=== PATIENT | female | born 1930 | race Caucasian/White ===

== ENCOUNTER 2017-04-05 12:38 | Emergency (ER) | payer MEDICARE, BC ==
[2017-04-05 13:37] VITALS: BP 147/77
[2017-04-05] MEDS ORDERED: cefTRIAXone 1 GM in Sodium Chloride 0.9% 50 ML IV ONE ×2 (13:51→14:15)
--- NOTE | 2017-04-05 13:53 | EDM.PDOC ---
ED HPI GENERAL MEDICAL PROBLEM - General Chief Complaint: General Stated Complaint: LIGHTHEADED, FALL Time Seen by Provider: 04/05/17 13:51 Source of Information: Reports: Patient, Family History Limitations: Reports: No Limitations - History of Present Illness INITIAL COMMENTS - FREE TEXT/NARRATIVE: pt has a urine culture positive for ecol. She was placed on nitrofuradatoin and she felt lite headed last nite and this am. She has not tolerated the nitrofuradatoin in the past. Onset: Today, Other (pt was very lite headed) Duration: Hour(s): Location: Reports: Head, Other (pt felt very lite headed. She was on nitrofurdatoin She has not tolerated that in the past. ) Associated Symptoms: Reports: Other (liteheaded and dizzy feeling. ) - Related Data Allergies Allergy/AdvReac Type Severity Reaction Status Date / Time nitrofurantoin Allergy Nausea Verified 04/06/17 09:17 seasonal allergies Allergy Cough Uncoded 04/05/17 13:37 Home Meds: Home Meds Simvastatin 40 mg PO DAILY 05/20/14 [History] Ramipril [Altace] 2.5 mg PO DAILY 02/02/15 [History] Aspirin 0.5 tab PO DAILY 11/26/15 [History] Lactobacillus Acidophilus [Acidophilus Lactobacillus] 1 each PO DAILY 11/26/15 [ History] Past Medical History HEENT History: Reports: Allergic Rhinitis, Hard of Hearing, Impaired Vision Cardiovascular History: Reports: Angina, Arrhythmia, High Cholesterol Gastrointestinal History: Reports: GERD Genitourinary History: Reports: UTI, Recurrent 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: Musculoskeletal History: Reports: Osteoarthritis Other Musculoskeletal History: R shoulder pain - Infectious Disease History Infectious Disease History: Reports: Chicken Pox, Measles, Pertussis (Whooping Cough) - Past Surgical History HEENT Surgical History: Reports: Cataract Surgery Musculoskeletal Surgical History: Reports: Hip Replacement Social & Family History - Tobacco Use Smoking Status *Q: Never Smoker Second Hand Smoke Exposure: No - Alcohol Use Days Per Week of Alcohol Use: 1 Number of Drinks Per Day: 1 Total Drinks Per Week: 1 - Recreational Drug Use Recreational Drug Use: No ED ROS GENERAL - Review of Systems Review Of Systems: See Below Constitutional: Reports: No Symptoms HEENT: Reports: No Symptoms Respiratory: Reports: No Symptoms Cardiovascular: Reports: No Symptoms Endocrine: Reports: No Symptoms GI/Abdominal: Reports: No Symptoms : Reports: No Symptoms Musculoskeletal: Reports: Other ( Pt i feeling very liteheaded. ) Skin: Reports: No Symptoms Neurological: Reports: Dizziness, Other ( Lite headed. ) Psychiatric: Reports: No Symptoms ED EXAM, GENERAL - Physical Exam Exam: See Below Free Text/Narrative:: Pt id feeling off balance. When she has been on the nitrofurotain has done this to her in the past. Exam Limited By: No Limitations General Appearance: Alert, Anxious, Other ( Pupils are equal and reactive. ) Ears: Normal TMs Nose: Normal Inspection Throat/Mouth: Normal Inspection Head: Atraumatic Neck: Normal Inspection Respiratory/Chest: No Respiratory Distress Cardiovascular: Regular Rate, Rhythm GI/Abdominal: Soft, Non-Tender (Female) Exam: Deferred Rectal (Female) Exam: Deferred Back Exam: Normal Inspection Extremities: Normal Inspection Neurological: Alert, Oriented, Normal Cognition Psychiatric: Normal Affect Course - Vital Signs Last Recorded V/S: Last Vital Signs Temp 37 C 04/05/17 13:36 Pulse 88 04/05/17 13:36 Resp 14 04/05/17 13:36 BP 147/77 H 04/05/17 13:36 Pulse Ox 98 04/05/17 13:36 - Orders/Labs/Meds Labs: Laboratory Tests 04/05/17 04/05/17 04/05/17 Range/Units 13:58 13:58 14:48 WBC 12.9 H (4.5-11.0) K/uL RBC 3.90 (3.30-5.50) M/uL Hgb 11.9 L D (12.0-15.0) g/dL Hct 36.2 (36.0-48.0) % MCV 93 (80-98) fL MCH 31 (27-31) pg MCHC 33 (32-36) % Plt Count 280 (150-400) K/uL Neut % (Auto) 92 H (36-66) % Lymph % (Auto) 4 L (24-44) % [place] % (Auto) 3 (2-6) % Eos % (Auto) 1 L (2-4) % Baso % (Auto) 0 (0-1) % Sodium 129 L (140-148) mmol/L Potassium 3.6 (3.6-5.2) mmol/L Chloride 94 L (100-108) mmol/L Carbon Dioxide 26 (21-32) mmol/L Anion Gap 12.6 (5.0-14.0) mmol/L BUN 22 H (7-18) mg/dL Creatinine 0.9 (0.6-1.0) mg/dL Est Cr Clr Drug Dosing 32.23 mL/min Estimated GFR (MDRD) 59 L (>60) Glucose 126 H (74-106) mg/dL Calcium 8.5 D (8.5-10.1) mg/dL Total Bilirubin 0.6 (0.2-1.0) mg/dL AST 26 (15-37) U/L ALT 28 (12-78) U/L Alkaline Phosphatase 61 (46-116) U/L Total Protein 6.7 (6.4-8.2) g/dL Albumin 3.7 (3.4-5.0) g/dL Globulin 3.0 (2.3-3.5) g/dL Albumin/Globulin Ratio 1.2 (1.2-2.2) Urine Color Yellow Urine Appearance Slightly cloudy Urine pH 5.0 (4.5-8.0) Ur Specific [place] 1.005 L (1.008-1.030) Urine Protein Negative (NEGATIVE) mg/dL Urine Glucose (UA) Normal (NEGATIVE) mg/dL Urine Ketones Negative (NEGATIVE) mg/dL Urine Occult Blood Negative (NEGATIVE) Urine Nitrite Negative (NEGATIVE) Urine Bilirubin Negative (NEGATIVE) Urine Urobilinogen Normal (NORMAL) mg/dL Ur Leukocyte Esterase Large (NEGATIVE) Urine RBC 0-5 (0-5) Urine WBC 0-5 (0-5) Ur Epithelial Cells Few Amorphous Sediment Not seen Urine Bacteria Few Urine Mucus Not seen Meds: Medications Discontinued Medications Generic Name Dose Route Start Last Admin Trade Name Freq PRN Reason Stop Dose Admin Sodium Chloride 1,000 mls @ 600 mls/hr 04/05/17 14:00 04/05/17 14:41 Normal Saline IV 600 mls/hr ASDIRECTED KIMMY Administration Ceftriaxone Sodium 1 gm/ 50 mls @ 100 mls/hr 04/05/17 14:15 04/05/17 14:41 Sodium Chloride IV 04/05/17 14:44 100 mls/hr ONETIME ONE Administration - Re-Assessments/Exams Free Text/Narrative Re-Assessment/Exam: 04/05/17 14:40 pt arrived with dizziness and intolerance to the nitofurtain. She also thought she had not been drinking enough fluids. Her wbc was elevated . f 04/05/17 14:45 Pt was given a liter of fluid and 1 gram of rocephen. Departure - Departure Time of Disposition: 13:40 Disposition: Home, Self-Care 01 Condition: Fair Clinical Impression: UTI (urinary tract infection), Medication adverse effect - Discharge Information Instructions: Urinary Tract Infection, Adult, [id number] Referrals: Nelly Larsen MD [Primary Care Provider] - Forms: ED Department Discharge Care Plan Goals: Push fluids, rtc tomorrow for rocephen 1gm, After that start cipro 500mg bid-- she has that. See her own provider and recheck Ua in 10 days.
[2017-04-05] MEDS ORDERED: Sodium Chloride 0.9% 1,000 ML IV SCH (14:00)
== END 2017-04-05 16:30 | disposition home or self-care (01) ==
LOC: JP.ED 12:38
DX: R42 Dizziness and giddiness (principal); T37.8X5A Adverse effect of other specified systemic anti-infectives and antiparasitics, initial encounter; N39.0 Urinary tract infection, site not specified; E78.00 Pure hypercholesterolemia, unspecified; Z96.649 Presence of unspecified artificial hip joint; Z98.49 Cataract extraction status, unspecified eye; Z88.8 Allergy status to other drugs, medicaments and biological substances; Z91.048 Other nonmedicinal substance allergy status
CPT/HCPCS: 36415; 80053; 81001; 85025; 96361; 96365; 99284; J0696; J7040; J7050; 99283

== ENCOUNTER 2017-11-22 10:41 | Emergency (ER) | payer MEDICARE, BC ==
[2017-11-22] MEDS ORDERED: LORazepam 0.5 MG Tab PO ONE (11:56)
[2017-11-22 12:39] VITALS: BP 152/76
--- NOTE | 2017-11-22 13:29 | EDM.PDOC ---
ED HPI GENERAL MEDICAL PROBLEM - General Chief Complaint: General Stated Complaint: SOB/FEELING LIGHT HEADED LAST 2 MORNINGS Time Seen by Provider: 11/22/17 11:49 Source of Information: Reports: Patient, RN Notes Reviewed History Limitations: Reports: No Limitations - History of Present Illness INITIAL COMMENTS - FREE TEXT/NARRATIVE: 87-year-old female presents to the emergency department with a complaint of shortness of breath, she states she's worried about her heart she denies any chest pain nausea vomiting or diaphoresis. 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 and does admit to being under a lot of stress - Related Data Allergies Allergy/AdvReac Type Severity Reaction Status Date / Time nitrofurantoin Allergy Nausea Verified 04/06/17 09:17 seasonal allergies Allergy Cough Uncoded 04/05/17 13:37 Home Meds: Home Meds Simvastatin 40 mg PO DAILY 05/20/14 [History] Ramipril [Altace] 2.5 mg PO DAILY 02/02/15 [History] Lactobacillus Acidophilus [Acidophilus Lactobacillus] 1 each PO DAILY 11/26/15 [ History] Aspirin [Ecotrin] 81 mg PO BEDTIME 11/22/17 [History] Past Medical History HEENT History: Reports: Allergic Rhinitis, Cataract, Hard of Hearing, Impaired Vision Cardiovascular History: Reports: Angina, Arrhythmia, High Cholesterol Respiratory History: Reports: SOB, Other (See Below) Other Respiratory History: nodules in both lungs Gastrointestinal History: Reports: GERD Genitourinary History: Reports: UTI, Recurrent 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: Musculoskeletal History: Reports: Osteoarthritis Other Musculoskeletal History: R shoulder pain - Infectious Disease History Infectious Disease History: Reports: Chicken Pox, Measles, Pertussis (Whooping Cough) - Past Surgical History HEENT Surgical History: Reports: Cataract Surgery Musculoskeletal Surgical History: Reports: Hip Replacement Social & Family History - Tobacco Use Smoking Status *Q: Never Smoker - Caffeine Use Caffeine Use: Reports: Coffee - Recreational Drug Use Recreational Drug Use: No ED ROS GENERAL - Review of Systems Review Of Systems: See Below Constitutional: Denies: Fever, Chills HEENT: Reports: No Symptoms Respiratory: Reports: Shortness of Breath. Denies: Cough, Sputum Cardiovascular: Reports: No Symptoms GI/Abdominal: Reports: No Symptoms : Reports: No Symptoms Musculoskeletal: Reports: No Symptoms Skin: Reports: No Symptoms Neurological: Reports: No Symptoms Psychiatric: Reports: Anxiety ED EXAM, GENERAL - Physical Exam Exam: See Below Free Text/Narrative:: General: Female, mildly anxious, alert and oriented x3 HEENT: head is atraumatic normocephalic, eyes pupils equal round reactive to light, sclera clear no conjunctivitis appreciated. Ears tympanic membranes clear and barnes landmarks and light reflex are present bilaterally canals are clear. Nose no septal deviation, nares are clear, no blood present. Mouth mucosa is moist and pink no erythema or exudate noted in soft palate, tongue is midline uvula is midline, dentition is intact. Neck: Supple no thyromegaly no tracheal deviation. Nodes: Cervical nodes subclavicular nodes nontender no palpable lymphadenopathy noted. Lungs: clear to auscultation bilaterally with symmetrical respirations, no adventitious noise appreciated. CV: Regular rate and rhythm S1 and S2 appreciated no murmurs rubs or gallops noted. Abdomen: Soft, nontender, no palpable masses or organomegaly appreciated, no distention no guarding bowel sounds are present, . Neuro: Cranial nerves II through XII grossly intact Skin: Warm and dry, intact Extremities: No lower extremity edema appreciated, Course - Vital Signs Last Recorded V/S: Last Vital Signs Temp 96.8 F 11/22/17 11:42 Pulse 77 11/22/17 12:33 Resp 18 11/22/17 12:33 BP 152/76 H 11/22/17 12:33 Pulse Ox 91 L 11/22/17 12:33 - Orders/Labs/Meds Orders: Active Orders 24 hr Category Date Time Status Cardiac Monitoring [RC] .As Directed Care 11/22/17 11:55 Active EKG Documentation Completion [RC] ASDIRECTED Care 11/22/17 11:55 Active Chest 2V [CR] Stat Exams 11/22/17 11:55 Taken EKG 12 Lead [EK] Stat Ther 11/22/17 11:55 Ordered Labs: Laboratory Tests 11/22/17 11/22/17 Range/Units 12:02 12:02 WBC 6.9 (4.5-11.0) K/uL RBC 4.14 (3.30-5.50) M/uL Hgb 12.4 (12.0-15.0) g/dL Hct 38.2 (36.0-48.0) % MCV 92 (80-98) fL MCH 30 (27-31) pg MCHC 33 (32-36) % Plt Count 281 (150-400) K/uL Neut % (Auto) 69 H (36-66) % Lymph % (Auto) 19 L (24-44) % [place] % (Auto) 10 H (2-6) % Eos % (Auto) 2 (2-4) % Baso % (Auto) 0 (0-1) % Sodium 136 L (140-148) mmol/L Potassium 4.2 (3.6-5.2) mmol/L Chloride 100 (100-108) mmol/L Carbon Dioxide 27 (21-32) mmol/L Anion Gap 13.2 (5.0-14.0) mmol/L BUN 21 H (7-18) mg/dL Creatinine 0.8 (0.6-1.0) mg/dL Est Cr Clr Drug Dosing 35.59 mL/min Estimated GFR (MDRD) > 60 (>60) Glucose 116 H (74-106) mg/dL Calcium 8.9 (8.5-10.1) mg/dL Total Bilirubin 0.4 (0.2-1.0) mg/dL AST 24 (15-37) U/L ALT 27 (12-78) U/L Alkaline Phosphatase 73 (46-116) U/L Troponin I < 0.017 (0.000-0.056) ng/mL NT-Pro-B Natriuret Pep 150 (5-450) pg/mL Total Protein 7.0 (6.4-8.2) g/dL Albumin 4.0 (3.4-5.0) g/dL Globulin 3.0 (2.3-3.5) g/dL Albumin/Globulin Ratio 1.3 (1.2-2.2) Meds: Medications Discontinued Medications Generic Name Dose Route Start Last Admin Trade Name Freq PRN Reason Stop Dose Admin Lorazepam 0.5 mg 11/22/17 11:56 11/22/17 12:31 Ativan PO 11/22/17 11:57 0.5 mg ONETIME ONE Administration Departure - Departure Time of Disposition: 13:26 Disposition: Home, Self-Care 01 Condition: Good Clinical Impression: Dyspnea Qualifiers: Dyspnea type: other forms of dyspnea Qualified Code(s): R06.09 - Other forms of dyspnea - Discharge Information Referrals: Nelly Larsen MD [Primary Care Provider] - Additional Instructions: Try the Ativan as needed for stressful symptoms and shortness of breath, Please followup with your primary care provider in 3-5 days if not better, please call return to the emergency department with worsening of symptoms. - My Orders Last 24 Hours: My Active Orders 11/22/17 11:55 Cardiac Monitoring [RC] .As Directed EKG Documentation Completion [RC] ASDIRECTED Chest 2V [CR] Stat EKG 12 Lead [EK] Stat - Assessment/Plan Last 24 Hours: My Active Orders 11/22/17 11:55 Cardiac Monitoring [RC] .As Directed EKG Documentation Completion [RC] ASDIRECTED Chest 2V [CR] Stat EKG 12 Lead [EK] Stat Plan: Assessment Acuity = acute Site and laterality = subjective dyspnea Etiology = probably related to underlying stress and anxiety Manifestations = none Location of injury = Home Lab values = CBC, CMP, troponin, BNP unremarkable EKG demonstrates sinus rhythm left axis deviation, chest x-ray I did review films myself I cannot appreciate any acute process, the official read from radiology is pending Plan I did review lab work EKG chest x-ray results with her she was provided half milligram Ativan while in the emergency department she had good relief with that blood pressure resolved she was able to rest, plan is to discharge home with Ativan half milligram by mouth 3 times a day when necessary total #10 follow-up primary care 3-5 days for reevaluation if not better This note was dictated using [employer] voice recognition software please call with any questions on syntax or grammar.
--- NOTE | 2017-11-22 14:08 | CR ---
CHEST: 2 view CLINICAL HISTORY:Shortness of breath COMPARISON:2015 FINDINGS: Heart size, pulmonary vascularity and hilar structures are normal. No infiltrate, effusion or pneumothorax is seen.. IMPRESSION: No acute bony process
== END 2017-11-22 13:45 | disposition home or self-care (01) ==
LOC: JP.ED 10:41
DX: R06.09 Other forms of dyspnea (principal); E78.00 Pure hypercholesterolemia, unspecified; Z88.8 Allergy status to other drugs, medicaments and biological substances; Z79.899 Other long term (current) drug therapy; Z79.82 Long term (current) use of aspirin
CPT/HCPCS: 36415; 71046; 71046-26; 80053; 83880; 84484; 85025; 93005; 99284; 99285-25; A9270-GY

== ENCOUNTER 2018-03-15 13:18 | Emergency (ER) | payer MEDICARE, BC ==
[2018-03-15] MEDS ORDERED: Lactated Ringers 1,000 ML IV ONE (14:57)
[2018-03-15] MEDS ORDERED: methylPREDNISolone Sodium Succinate 40 MG/1 ML SDV IVPUSH ONE (14:58)
[2018-03-15] MEDS ORDERED: diphenhydrAMINE 50 MG/ML SDV IVPUSH ONE (14:58)
--- NOTE | 2018-03-15 15:04 | EDM.PDOC ---
ED HPI GENERAL MEDICAL PROBLEM - General Chief Complaint: General Stated Complaint: FALL, HIT HEAD Time Seen by Provider: 03/15/18 14:45 Source of Information: Reports: Patient, Family, Old Records, RN History Limitations: Reports: No Limitations - History of Present Illness INITIAL COMMENTS - FREE TEXT/NARRATIVE: 87 yo female here after a brief syncopal spell that occurred when she got up to stand at home today. Was placed on MacroBid yesterday in the clinic for a UTI even though she has a pHx of allergy to this med. A culture was set up yesterday and is currently pending. She states she felt well yesterday, but today feels week, flushed and itchy. No difficulty breathing or swallowing. No change in her voice. No self tx. Did hit the back of her head when she fell. No bleeding. Onset: Today Onset Date: 03/15/18 Onset Time: 13:00 Duration: Minutes: (brief), Resolved Prior to Arrival Location: Reports: Generalized Quality: Reports: Other (itching of skin generalized.) Severity: Moderate Improves with: Reports: None Worsens with: Reports: Other (? time and Macrodantin exposure) Context: Reports: Other (see HPI) Associated Symptoms: Reports: Rash, Syncope (brief). 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) - Related Data Allergies Allergy/AdvReac Type Severity Reaction Status Date / Time nitrofurantoin Allergy Nausea Verified 03/15/18 14:23 seasonal allergies Allergy Cough Uncoded 04/05/17 13:37 Home Meds: Home Meds Simvastatin 40 mg PO DAILY 05/20/14 [History] Ramipril [Altace] 2.5 mg PO DAILY 02/02/15 [History] Lactobacillus Acidophilus [Acidophilus Lactobacillus] 1 each PO DAILY 11/26/15 [ History] Past Medical History HEENT History: Reports: Allergic Rhinitis, Cataract, Hard of Hearing, Impaired Vision Cardiovascular History: Reports: Angina, Arrhythmia, High Cholesterol Respiratory History: Reports: SOB, Other (See Below) Other Respiratory History: nodules in both lungs Gastrointestinal History: Reports: GERD Genitourinary History: Reports: UTI, 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: Musculoskeletal History: Reports: Osteoarthritis Other Musculoskeletal History: R shoulder pain - Infectious Disease History Infectious Disease History: Reports: Chicken Pox, Measles, Pertussis (Whooping Cough) - Past Surgical History HEENT Surgical History: Reports: Cataract Surgery Musculoskeletal Surgical History: Reports: Hip Replacement Social & Family History - Tobacco Use Smoking Status *Q: Never Smoker - Caffeine Use Caffeine Use: Reports: Coffee - Recreational Drug Use Recreational Drug Use: No ED ROS GENERAL - Review of Systems Review Of Systems: See Below Constitutional: Reports: Weakness HEENT: Reports: No Symptoms Respiratory: Reports: No Symptoms Cardiovascular: Reports: No Symptoms GI/Abdominal: Reports: No Symptoms : Reports: Frequency Musculoskeletal: Reports: No Symptoms Skin: Reports: Pruritis, Erythema Neurological: Reports: No Symptoms ED EXAM, GENERAL - Physical Exam Exam: See Below Exam Limited By: No Limitations General Appearance: Alert, WD/WN, No Apparent Distress Eye Exam: Bilateral Eye: Normal Inspection Ears: Normal External Exam, Normal Canal, Hearing Grossly Normal Ear Exam: Bilateral Ear: Auricle Normal, Canal Normal Nose: Normal Inspection, Normal Mucosa, No Blood Throat/Mouth: Normal Inspection, Normal Lips, Normal Oropharynx, Normal Voice, No Airway Compromise Head: Normocephalic, Other (small occiput bump) Neck: Normal Inspection, Supple, Non-Tender Respiratory/Chest: No Respiratory Distress, Lungs Clear, Normal Breath Sounds Cardiovascular: Regular Rate, Rhythm, No Edema GI/Abdominal: Normal Bowel Sounds, Soft, Non-Tender Back Exam: Normal Inspection. No: CVA Tenderness (R), CVA Tenderness (L) Extremities: Normal Inspection, Normal Range of Motion, Non-Tender, No Pedal Edema Neurological: Alert, Oriented, CN II-XII Intact, Normal Cognition, No Motor/ Sensory Deficits Psychiatric: Normal Affect, Normal Mood Skin Exam: Warm, Dry, Intact, Erythema (on extrems and to a lesser degree her face.). No: Wound/Incision Course - Vital Signs Text/Narrative:: Feeling better after tx in ER. Last Recorded V/S: Last Vital Signs Temp 36.8 C 03/15/18 14:22 Pulse 80 03/15/18 15:17 Resp 18 03/15/18 15:17 BP 138/75 03/15/18 15:17 Pulse Ox 100 03/15/18 15:17 Orthostatic Blood Pressure [ 141/73 Standing] Orthostatic Blood Pressure [ 124/74 Sitting] - Orders/Labs/Meds Orders: Active Orders 24 hr Category Date Time Status Cardiac Monitoring [RC] .As Directed Care 03/15/18 13:29 Active Orthostatic Vital Signs [RC] ASDIRECTED Care 03/15/18 13:29 Active UA W/MICROSCOPIC [URIN] Stat Lab 03/15/18 13:44 Ordered Lactated Ringers [Ringers, Lactated] 1,000 ml Med 03/15/18 14:57 Active IV BOLUS Medication Orders Lactated Ringer's (Ringers, Lactated) 1,000 mls @ 1,000 mls/hr IV BOLUS ONE Stop: 03/15/18 15:56 Last Admin: 03/15/18 15:18 Dose: 1,000 mls/hr Meds: Medications Generic Name Dose Route Start Last Admin Trade Name Freq PRN Reason Stop Dose Admin Lactated Ringer's 1,000 mls @ 1,000 mls/hr 03/15/18 14:57 03/15/18 15:18 Ringers, Lactated IV 03/15/18 15:56 1,000 mls/hr BOLUS ONE Administration Discontinued Medications Generic Name Dose Route Start Last Admin Trade Name Freq PRN Reason Stop Dose Admin Diphenhydramine HCl 50 mg 03/15/18 14:58 03/15/18 15:19 Benadryl IVPUSH 03/15/18 14:59 50 mg ONETIME ONE Administration Famotidine 20 mg 03/15/18 15:06 Pepcid PO 03/15/18 15:07 ONETIME ONE Methylprednisolone Sodium Succinate 40 mg 03/15/18 14:58 03/15/18 15:19 Solu-Medrol IVPUSH 03/15/18 14:59 40 mg ONETIME ONE Administration Departure - Departure Time of Disposition: 16:15 Disposition: Home, Self-Care 01 Condition: Fair Clinical Impression: Allergic reaction caused by a drug Qualifiers: Encounter type: initial encounter Qualified Code(s): T78.40XA - Allergy, unspecified, initial encounter - Discharge Information *PRESCRIPTION DRUG MONITORING PROGRAM REVIEWED*: Not Applicable *COPY OF PRESCRIPTION DRUG MONITORING REPORT IN PATIENT FOREST: Not Applicable Instructions: Allergies, Adult, [id number] Referrals: Nelly Larsen MD [Primary Care Provider] - Forms: ED Department Discharge Additional Instructions: Don't take Macrodantin, MacroBid, or nitrofurantoin in future or now. Take diphenhydramine 25-50 mg every 6 hrs as needed for itching. Take your new antibiotic as directed for your UTI. Contact your provider on Tuesday regarding your culture. Return as needed. Drink ample fluids. - My Orders Last 24 Hours: My Active Orders 03/15/18 13:29 Cardiac Monitoring [RC] .As Directed Orthostatic Vital Signs [RC] ASDIRECTED 03/15/18 13:44 UA W/MICROSCOPIC [URIN] Stat 03/15/18 14:57 Lactated Ringers [Ringers, Lactated] 1,000 ml IV BOLUS - Assessment/Plan Last 24 Hours: My Active Orders 03/15/18 13:29 Cardiac Monitoring [RC] .As Directed Orthostatic Vital Signs [RC] ASDIRECTED 03/15/18 13:44 UA W/MICROSCOPIC [URIN] Stat 03/15/18 14:57 Lactated Ringers [Ringers, Lactated] 1,000 ml IV BOLUS
[2018-03-15] MEDS ORDERED: Famotidine 20 MG Tab PO ONE (15:06)
[2018-03-15 15:18] VITALS: BP 138/75
[2018-03-15] MEDS ORDERED: Cephalexin 250 MG Cap PO ONE (15:50)
== END 2018-03-15 16:32 | disposition home or self-care (01) ==
LOC: JP.ED 13:18
DX: R55 Syncope and collapse (principal); T37.8X5A Adverse effect of other specified systemic anti-infectives and antiparasitics, initial encounter; N39.0 Urinary tract infection, site not specified; E78.00 Pure hypercholesterolemia, unspecified; Z79.899 Other long term (current) drug therapy
CPT/HCPCS: 96361; 96374; 96375; 99283; 99284; A9270; J1200; J2920; J7120

== ENCOUNTER 2018-03-20 17:42 | Emergency (ER) | payer MEDICARE, BC ==
[2018-03-20 17:59] VITALS: BP 169/92
[2018-03-20] MEDS ORDERED: Ertapenem 1 GM Vial IVPUSH ONE (18:29)
[2018-03-20] MEDS ORDERED: Sodium Chloride 0.9% 10 ML Syringe FLUSH PRN (18:29)
--- NOTE | 2018-03-20 18:35 | EDM.PDOC ---
ED HPI GENERAL MEDICAL PROBLEM - General Chief Complaint: General Stated Complaint: ILLNESS Time Seen by Provider: 03/20/18 18:19 Source of Information: Reports: Patient, RN Notes Reviewed History Limitations: Reports: No Limitations - History of Present Illness INITIAL COMMENTS - FREE TEXT/NARRATIVE: 87-year-old female presents to the emergency department today with complaint of burning on urination, she recently provided a urinary sample the clinic on March 14 culture results are available from March 16. Unfortunately the only susceptibility to by mouth medications is Macrobid, she did try this medication for 1 day she does have a known allergy to this medication which causes hypotension and syncopal events for her. Therefore she is only taken 1 dose. At this time she is asymptomatic except for urinary frequency urine culture demonstrates Escherichia coli ESBL. - Related Data Allergies Allergy/AdvReac Type Severity Reaction Status Date / Time nitrofurantoin Allergy Rash Verified 03/15/18 16:29 seasonal allergies Allergy Cough Uncoded 04/05/17 13:37 Home Meds: Home Meds Simvastatin 40 mg PO DAILY 05/20/14 [History] Ramipril [Altace] 2.5 mg PO DAILY 02/02/15 [History] Lactobacillus Acidophilus [Acidophilus Lactobacillus] 1 each PO DAILY 11/26/15 [ History] Past Medical History HEENT History: Reports: Allergic Rhinitis, Cataract, Hard of Hearing, Impaired Vision Cardiovascular History: Reports: Angina, Arrhythmia, High Cholesterol Respiratory History: Reports: SOB, Other (See Below) Other Respiratory History: nodules in both lungs Gastrointestinal History: Reports: GERD Genitourinary History: Reports: UTI, Recurrent 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: Musculoskeletal History: Reports: Osteoarthritis Other Musculoskeletal History: R shoulder pain - Infectious Disease History Infectious Disease History: Reports: Chicken Pox, Measles, Pertussis (Whooping Cough) - Past Surgical History HEENT Surgical History: Reports: Cataract Surgery Musculoskeletal Surgical History: Reports: Hip Replacement Social & Family History - Tobacco Use Smoking Status *Q: Never Smoker - Caffeine Use Caffeine Use: Reports: Coffee - Recreational Drug Use Recreational Drug Use: No ED ROS GENERAL - Review of Systems Review Of Systems: See Below Constitutional: Reports: No Symptoms Respiratory: Reports: No Symptoms Cardiovascular: Reports: No Symptoms : Reports: Frequency, Urgency. Denies: Dysuria ED EXAM, GENERAL - Physical Exam Exam: See Below Exam Limited By: No Limitations General Appearance: Alert, WD/WN, No Apparent Distress Respiratory/Chest: No Respiratory Distress GI/Abdominal: Normal Bowel Sounds, Soft, Non-Tender, No Organomegaly, No Distention Course - Vital Signs Last Recorded V/S: Last Vital Signs Temp 95.8 F 03/20/18 18:15 Pulse 92 03/20/18 18:15 Resp 16 03/20/18 18:15 BP 169/92 H 03/20/18 18:15 Pulse Ox 97 03/20/18 18:15 - Orders/Labs/Meds Orders: Active Orders 24 hr Category Date Time Status Peripheral IV Care [RC] . DIRECTED Care 03/20/18 18:30 Active Sodium Chloride 0.9% [Saline Flush] Med 03/20/18 18:29 Active 10 ml FLUSH ASDIRECTED PRN Peripheral IV Insertion Adult [OM.PC] Urgent Oth 03/20/18 18:29 Ordered Medication Orders Sodium Chloride (Saline Flush) 10 ml FLUSH ASDIRECTED PRN PRN Reason: Keep Vein Open Last Admin: 03/20/18 19:09 Dose: 10 ml Meds: Medications Generic Name Dose Route Start Last Admin Trade Name Freq PRN Reason Stop Dose Admin Sodium Chloride 10 ml 03/20/18 18:29 03/20/18 19:09 Saline Flush FLUSH 10 ml ASDIRECTED PRN Administration Keep Vein Open Discontinued Medications Generic Name Dose Route Start Last Admin Trade Name Freq PRN Reason Stop Dose Admin Ertapenem 1 gm 03/20/18 18:29 03/20/18 18:58 Invanz IVPUSH 03/20/18 18:30 1 gm ONETIME ONE Administration Departure - Departure Time of Disposition: 19:14 Disposition: Home, Self-Care 01 Condition: Good Clinical Impression: UTI, Urinary tract infectious disease - Discharge Information Referrals: Nelly Larsen MD [Primary Care Provider] - Forms: ED Department Discharge Additional Instructions: Please return to the emergency department for the next 2 days for your dose of antibiotics, call return to the emergency department worsening of symptoms - My Orders Last 24 Hours: My Active Orders 03/20/18 18:29 Sodium Chloride 0.9% [Saline Flush] 10 ml FLUSH ASDIRECTED PRN Peripheral IV Insertion Adult [OM.PC] Urgent 03/20/18 18:30 Peripheral IV Care [RC] . DIRECTED - Assessment/Plan Last 24 Hours: My Active Orders 03/20/18 18:29 Sodium Chloride 0.9% [Saline Flush] 10 ml FLUSH ASDIRECTED PRN Peripheral IV Insertion Adult [OM.PC] Urgent 03/20/18 18:30 Peripheral IV Care [RC] . DIRECTED Plan: Assessment Acuity = acute Site and laterality = urinary tract infection Etiology = Escherichia coli ESBL Manifestations = frequency, urgency Location of injury = Home Lab values = none culture results from clinic do show greater than 100,000 Plan Because of the allergy list and the multiple resistance to medications elected to treat with Invanz 1 g daily for 3 days with the assumption this is an uncomplicated urinary tract infection other than the identified bacteria This note was dictated using [employer] voice recognition software please call with any questions on syntax or grammar.
== END 2018-03-20 19:25 | disposition home or self-care (01) ==
LOC: JP.ED 17:42
DX: N39.0 Urinary tract infection, site not specified (principal); E78.00 Pure hypercholesterolemia, unspecified; Z88.8 Allergy status to other drugs, medicaments and biological substances; Z79.899 Other long term (current) drug therapy
CPT/HCPCS: 96374; 99283; J1335; J7050

== ENCOUNTER 2018-11-03 17:41 | Emergency (ER) | payer MEDICARE, BC ==
[2018-11-03 18:16] VITALS: BP 143/69
--- NOTE | 2018-11-03 18:58 | EDM.PDOC ---
ED HPI GENERAL MEDICAL PROBLEM - General Chief Complaint: Cardiovascular Problem Stated Complaint: HIGH BLOOD PRESSURE Time Seen by Provider: 11/03/18 18:50 Source of Information: Reports: Patient History Limitations: Reports: No Limitations - History of Present Illness INITIAL COMMENTS - FREE TEXT/NARRATIVE: 88-year-old female has a history of hypertension and is on blood pressure medication. She has been taking her blood pressure at home with an old blood pressure cuff which has been reading high and making her very nervous and anxious. She decided to come to the emergency room to be evaluated. She denies any symptoms. - Related Data Allergies Allergy/AdvReac Type Severity Reaction Status Date / Time nitrofurantoin Allergy Rash Verified 11/03/18 18:26 seasonal allergies Allergy Cough Uncoded 11/03/18 18:26 Home Meds: Home Meds Simvastatin 40 mg PO DAILY 05/20/14 [History] Ramipril [Altace] 2.5 mg PO DAILY 02/02/15 [History] Lactobacillus Acidophilus [Acidophilus Lactobacillus] 1 each PO DAILY 11/26/15 [ History] Cholecalciferol (Vitamin D3) [Vitamin D3] 1 tab PO DAILY 04/21/18 [History] Estradiol [Estrace 0.01% Vaginal Crm] 11/03/18 [History] Past Medical History HEENT History: Reports: Allergic Rhinitis, Cataract, Hard of Hearing, Impaired Vision Cardiovascular History: Reports: Angina, Arrhythmia, High Cholesterol Respiratory History: Reports: SOB, Other (See Below) Other Respiratory History: nodules in both lungs Gastrointestinal History: Reports: GERD Genitourinary History: Reports: UTI, Recurrent 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: Musculoskeletal History: Reports: Osteoarthritis Other Musculoskeletal History: R shoulder pain - Infectious Disease History Infectious Disease History: Reports: Chicken Pox, Measles, Mumps - Past Surgical History HEENT Surgical History: Reports: Cataract Surgery Musculoskeletal Surgical History: Reports: Hip Replacement Social & Family History - Tobacco Use Smoking Status *Q: Never Smoker - Caffeine Use Caffeine Use: Reports: Coffee, Soda, Tea ED ROS GENERAL - Review of Systems Review Of Systems: See Below Constitutional: Denies: Fever, Chills, Weakness, Fatigue HEENT: Reports: No Symptoms Respiratory: Denies: Shortness of Breath, Pleuritic Chest Pain, Cough, Hemoptysis Cardiovascular: Denies: Chest Pain, Dyspnea on Exertion, Lightheadedness, Palpitations GI/Abdominal: Reports: No Symptoms Neurological: Denies: Dizziness, Headache, Numbness, Trouble Speaking Hematologic/Lymphatic: Reports: No Symptoms ED EXAM, GENERAL - Physical Exam Exam: See Below Course - Vital Signs Last Recorded V/S: Last Vital Signs Temp 36.7 C 11/03/18 18:36 Pulse 82 11/03/18 18:36 Resp 16 11/03/18 18:36 BP 143/69 H 11/03/18 18:36 Pulse Ox 97 11/03/18 18:36 Departure - Departure Time of Disposition: 19:00 Disposition: Home, Self-Care 01 Condition: Good Clinical Impression: Blood pressure check Instructions: Hypertension, [id number] Referrals: Nelly Larsen MD [Primary Care Provider] - Forms: ED Department Discharge Care Plan Goals: Continue working with primary care provider for chronic hypertension and continue present medications. Consider buying a new blood pressure machine. - Problem List & Annotations (1) Blood pressure check SNOMED Code(s): 004624972 Code(s): Z01.30 - ENCOUNTER FOR EXAM OF BLOOD PRESSURE W/O ABNORMAL FINDINGS Status: Acute
== END 2018-11-03 19:08 | disposition home or self-care (01) ==
LOC: JP.ED 17:41
DX: I10 Essential (primary) hypertension (principal); K21.9 Gastro-esophageal reflux disease without esophagitis; E78.00 Pure hypercholesterolemia, unspecified; Z88.8 Allergy status to other drugs, medicaments and biological substances; Z79.899 Other long term (current) drug therapy; Z91.09 Other allergy status, other than to drugs and biological substances
CPT/HCPCS: 99281; 99282

== ENCOUNTER 2018-12-25 16:41 | Emergency (ER) | payer MEDICARE, BC ==
[2018-12-25 17:09] VITALS: BP 173/76; PULSE 91
--- NOTE | 2018-12-25 17:51 | EDM.PDOC ---
ED HPI GENERAL MEDICAL PROBLEM - General Stated Complaint: LYMES DISEASE SYMPTOMS Time Seen by Provider: 12/25/18 16:46 Source of Information: Reports: Patient, RN Notes Reviewed History Limitations: Reports: No Limitations - History of Present Illness INITIAL COMMENTS - FREE TEXT/NARRATIVE: 88-year-old female presents emergency department today with concern about Lyme disease. She was working out in the garden about 2 weeks ago did have a tick bite she states she did not developed a rash but now she is developing joint pain in her left shoulder she has not had any fevers no nausea vomiting for other symptoms. She does have a history Lyme in the past - Related Data Allergies Allergy/AdvReac Type Severity Reaction Status Date / Time nitrofurantoin Allergy Rash Verified 11/03/18 18:26 seasonal allergies Allergy Cough Uncoded 11/03/18 18:26 Home Meds: Home Meds Simvastatin 40 mg PO DAILY 05/20/14 [History] Ramipril [Altace] 2.5 mg PO DAILY 02/02/15 [History] Lactobacillus Acidophilus [Acidophilus Lactobacillus] 1 each PO DAILY 11/26/15 [ History] Cholecalciferol (Vitamin D3) [Vitamin D3] 1 tab PO DAILY 04/21/18 [History] Estradiol [Estrace 0.01% Vaginal Crm] 11/03/18 [History] Past Medical History HEENT History: Reports: Allergic Rhinitis, Cataract, Hard of Hearing, Impaired Vision Cardiovascular History: Reports: Angina, Arrhythmia, High Cholesterol Respiratory History: Reports: SOB, Other (See Below) Other Respiratory History: nodules in both lungs Gastrointestinal History: Reports: GERD Genitourinary History: Reports: UTI, 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: Musculoskeletal History: Reports: Osteoarthritis Other Musculoskeletal History: R shoulder pain - Infectious Disease History Infectious Disease History: Reports: Chicken Pox, Measles, Mumps - Past Surgical History HEENT Surgical History: Reports: Cataract Surgery Musculoskeletal Surgical History: Reports: Hip Replacement Social & Family History - Tobacco Use Smoking Status *Q: Never Smoker - Caffeine Use Caffeine Use: Reports: Coffee, Soda, Tea ED ROS GENERAL - Review of Systems Review Of Systems: See Below Constitutional: Reports: No Symptoms HEENT: Reports: No Symptoms Respiratory: Reports: No Symptoms Cardiovascular: Reports: No Symptoms GI/Abdominal: Reports: No Symptoms : Reports: No Symptoms Musculoskeletal: Reports: Shoulder Pain Skin: Reports: No Symptoms ED EXAM, GENERAL - Physical Exam Exam: See Below Free Text/Narrative:: Small ulcer appreciated on the left flank consistent with tick bite no erythema migrans appreciated Exam Limited By: No Limitations General Appearance: Alert, WD/WN, No Apparent Distress Respiratory/Chest: No Respiratory Distress Course - Vital Signs Last Recorded V/S: Last Vital Signs Temp 96.6 F 12/25/18 17:08 Pulse 91 12/25/18 17:08 Resp 16 12/25/18 17:08 BP 173/76 H 12/25/18 17:08 Pulse Ox 98 12/25/18 17:08 - Orders/Labs/Meds Orders: Active Orders 24 hr Category Date Time Status BABESIA MICROTI ANTIBODY PANEL Urgent Lab 12/25/18 17:44 Ordered E. CHAFFEENSIS-HME (MONOCYTIC) Urgent Lab 12/25/18 17:44 Ordered LYME, TOTAL AB TEST/REFLEX Urgent Lab 12/25/18 17:44 Ordered Departure - Departure Time of Disposition: 17:50 Disposition: Home, Self-Care 01 Condition: Fair Clinical Impression: Tick bite of abdomen Qualifiers: Encounter type: initial encounter Qualified Code(s): S30.861A - Insect bite ( nonvenomous) of abdominal wall, initial encounter; W57.XXXA - Bitten or stung by nonvenomous insect and other nonvenomous arthropods, initial encounter - Discharge Information Instructions: Tick Bite Information, Adult, [id number], Lyme Disease Referrals: Nelly Larsen MD [Primary Care Provider] - Additional Instructions: Hold off on antibiotics, await felt tick panel results become available, if symptoms get worse start the antibiotics please follow-up with your primary care in the next 5-7 days for reevaluation if symptoms get worse otherwise weight to results of tick panel become available, call or return to the emergency department worsening of symptoms - My Orders Last 24 Hours: My Active Orders 12/25/18 17:44 BABESIA MICROTI ANTIBODY PANEL Urgent E. CHAFFEENSIS-HME (MONOCYTIC) Urgent LYME, TOTAL AB TEST/REFLEX Urgent - Assessment/Plan Last 24 Hours: My Active Orders 12/25/18 17:44 BABESIA MICROTI ANTIBODY PANEL Urgent E. CHAFFEENSIS-HME (MONOCYTIC) Urgent LYME, TOTAL AB TEST/REFLEX Urgent Plan: Assessment Acuity = acute Site and laterality = tick bite abdomen left side Etiology = Ixodes scapularis Manifestations = left shoulder pain Location of injury = Home Lab values = tick panel pending Plan I did discuss options with her she elected to draw the tick panel I also provided her with a prescription for doxycycline 100 mg by mouth twice a day 21 days she will follow-up with her primary care after results of the tick panel come available she will not take the antibiotics unless her tick panel is positive or her symptoms get worse This note was dictated using [employer] voice recognition software please call with any questions on syntax or grammar.
[2018-12-28 12:10] LABS: LYME IGG/IGM AB <0.91 ISR (0.00-0.90)
[2018-12-28 14:09] LABS: E. CHAFFEENSIS (HME) IGG TITER Negative (Neg:<1:64); E. CHAFFEENSIS (HME) IGM TITER Negative (Neg:<1:20)
[2018-12-28 17:08] LABS: BABESIA MICROTI IGG <1:10 (Neg:<1:10); BABESIA MICROTI IGM <1:10 (Neg:<1:10)
== END 2018-12-25 18:01 | disposition home or self-care (01) ==
LOC: JP.ED 16:41
DX: S30.861A Insect bite (nonvenomous) of abdominal wall, initial encounter (principal); W57.XXXA Bitten or stung by nonvenomous insect and other nonvenomous arthropods, initial encounter; E78.00 Pure hypercholesterolemia, unspecified; Z79.899 Other long term (current) drug therapy
CPT/HCPCS: 86618; 86666; 86666-59; 86753; 99283